=== PATIENT | female | born 1960 | race Caucasian/White ===

== ENCOUNTER → 2016-12-03 | Outpatient (CLI) | payer OTHER ==
[~2016-12-03] VITALS: Ht 162.6 cm; Wt 163.7 kg
[~2016-12-03] MED LIST: ACETAMINOPHEN 500 MG TAB PO SCH; ARIP30TA3 PO; ATV/1 PO; BUPR200T2 PO; CEFAZOLIN 3000 MG/65 ML D5W 65 ML IV SCH; CeleBREX 200 MG CAP PO SCH; DEXAMETHASONE 4 MG TAB PO SCH; ETOD500T95 PO; FERR325T18 PO; GABAPENTIN 300 MG CAP PO SCH; GLC/500 PO; INSDGI SC; LACTATED RINGER'S 1000ML IV SCH; LACTATED RINGER'S 500 ML IV SCH; LAMO100T16 PO; METOCLOPRAMIDE HCL 10 MG TAB PO SCH; OXYBUTYNIN PO; ROPIVACAINE 5MG/ML 30 ML 150 MG, BUPIVACAINE/EPINEPHR 0.5% MPF 30 ML, KETOROLAC TROMETH... INFIL SCH; SERT-234 PO; SIMV40TA2 PO; TRANEXAMIC ACID INJ 1,000 MG in SODIUM CHLORIDE 0.9% 100ML 100 ML IV SCH; TRAZ100T29 PO
[2016-12-03 09:32] VITALS: Ht 162.6 cm; Wt 163.7 kg
--- NOTE | 2016-12-03 10:04 | PAT Medication Instructions ---
Service Date Dec 03, 2016. Current Home Medication List Aripiprazole (Abilify), 30 MG PO QPM Bupropion (Wellbutrin Sr), 200 MG PO BID Etodolac (Etodolac), 1 TAB PO Q12H Ferrous Gluconate (Ferrous Gluconate), 324 MG PO BID Insulin Glargine (Lantus), 40 SC HS Lamotrigine (Lamictal), 100 MG PO BID Lorazepam (Ativan), 1 MG PO TID Metformin Hcl (Glucophage), 500 MG PO BID Sertraline (Zoloft), 100 MG PO QAM Simvastatin (Zocor), 40 MG PO QPM Trazodone Hcl (Trazodone), 200 MG PO QPM [Oxybutynin], 10 MG PO HS Medication Instructions For Your Scheduled Surgery - Hold the following medications 48 hours prior to surgery: Metformin Hcl (Glucophage), 500 MG PO BID - Hold the following medications the morning of surgery: Ferrous Gluconate (Ferrous Gluconate), 324 MG PO BID Etodolac (Etodolac), 1 TAB PO Q12H (otherwise okay to continue per surgeon) - Take the following medications the morning of surgery with a sip of water OTHERWISE NOTHING TO EAT OR DRINK AFTER MIDNIGHT: Sertraline (Zoloft), 100 MG PO QAM Bupropion (Wellbutrin Sr), 200 MG PO BID Lorazepam (Ativan), 1 MG PO TID Lamotrigine (Lamictal), 100 MG PO BID - Take the following medications as scheduled the night before surgery: Simvastatin (Zocor), 40 MG PO QPM Aripiprazole (Abilify), 30 MG PO QPM Trazodone Hcl (Trazodone), 200 MG PO QPM [Oxybutynin], 10 MG PO HS Bupropion (Wellbutrin Sr), 200 MG PO BID Insulin Glargine (Lantus), 40 SC HS Lorazepam (Ativan), 1 MG PO TID Ferrous Gluconate (Ferrous Gluconate), 324 MG PO BID Lamotrigine (Lamictal), 100 MG PO BID If you have any questions please call us at [phone] (Natalie Quan PA-C) or [phone] or [phone]
--- NOTE | 2016-12-03 10:44 | DIAGNOSTIC IMAGING REPORT ---
CHEST PREADMISSION(PA/LAT) CLINICAL HISTORY: Preoperative chest COMPARISON STUDY: No previous studies for comparison. FINDINGS: The heart is within normal limits in size. There is no lobar consolidation. There is no failure. There are no pleural effusions. There is an opacity at the level of the left cardiophrenic angle, likely resulting a fat pad. There is a linear opacity at the left mid to lower lung zone likely are presenting subsegmental atelectasis.[ IMPRESSION: No active disease in the chest. Electronically signed by: Ford Vasquez M.D. 12/03/2016 10:42 AM Dictated Date/Time: 12/03/2016 10:41 AM
[2016-12-03 11:02] LABS: BASO % 0.8 %; BASO ABS # 0.06 K/uL (0-0.2); COMPLETE YES; EOS % 2.6 %; HEMATOCRIT 41.1 % (37-47); IG% 0.3 %; LYMPH % 41.6 %; LYMPH ABS # 3.05 K/uL (1.2-3.4); MEAN CELL VOLUME 86.7 fL (80-100); MEAN CORPUSCULAR HEMOGLOBIN 28.1 pg (25-34); MEAN CORPUSCULAR HGB CONC 32.4 g/dl (32-36); MEAN PLATELET VOLUME 10.3 fL (7.4-10.4); MONO % 6.1 %; NEUT % 48.6 %; PLATELET COUNT 295 K/uL (130-400); RED BLOOD COUNT 4.74 M/uL (4.2-5.4); WHITE BLOOD COUNT 7.33 K/uL (4.8-10.8)
[2016-12-03 11:12] LABS: INR 0.9 (0.9-1.1); PARTIAL THROMBOPLASTIN RATIO 1.1; PROTHROMBIN TIME (PATIENT) 10.1 SECONDS (9.0-12.0)
[2016-12-03 11:38] LABS: BUN/CREATININE RATIO 12.8 (10-20); CALCIUM 9.6 mg/dl (8.5-10.1); CREATININE 0.85 mg/dl (0.60-1.20); POTASSIUM 4.3 mmol/L (3.5-5.1)
[2016-12-03 12:27] LABS: ESTIMATED AVERAGE GLUCOSE 120 mg/dl; HA1C FLAG Normal (Normal)
--- NOTE | 2016-12-03 17:05 | HISTORY & PHYSICAL EXAMINATION ---
DATE OF ADMISSION: 12/03/2016 DATE OF SURGERY: 12/12/2016 PROCEDURE: Right knee replacement. HISTORY OF PRESENT ILLNESS: The patient is a pleasant 56-year-old female who presents for preoperative evaluation prior to right knee replacement. She states she has been having pain in this knee for several years now, which has gradually worsened, it has now gotten to the point it is affecting her daily activities including walking, standing, going up and down steps. She has tried oral anti-inflammatories, previous cortisone injections as well as viscosupplementation with no relief. She had a previous knee arthroscopy performed in 2004, of right knee arthroscopy, partial medial and lateral meniscectomies. At this point in time, has failed conservative measures and would like to proceed with a right knee replacement. PAST MEDICAL HISTORY: 1. Hypertension. 2. High cholesterol. 3. Sleep apnea. 4. Anxiety. 5. Diabetes. 6. Obesity. ALLERGIES: No known drug allergies. CURRENT MEDICATIONS: 1. Ferrous gluconate 324 mg twice a day. 2. Lamictal 100 mg twice a day. 3. Wellbutrin 200 mg twice a day. 4. Ativan 1 mg 3 times a day. 5. Zocor 40 mg daily. 6. Metformin 500 mg twice a day. 7. Etodolac 500 mg daily. 8. Lantus 40 units daily. 9. Zoloft 100 mg daily. PAST SURGICAL HISTORY: 1. Right knee arthroscopy - July 2005. 2. Tubal ligation. 3. Cholecystectomy. FAMILY HISTORY: Noncontributory. SOCIAL HISTORY: She quit smoking in 2011. No alcohol consumption. REVIEW OF SYSTEMS: Otherwise negative. Please see HPI for pertinent positives. PHYSICAL EXAMINATION: GENERAL: A 56-year-old female, in no acute distress, alert and oriented x3. She is 5 feet 3 inches, weighs 349 pounds. VITAL SIGNS: Blood pressure is 148/86, pulse 106, O2 sats 97%. HEENT: Normocephalic, atraumatic. CARDIAC: Regular rate and rhythm. Resting pulse 106. LUNGS: Clear to auscultation without rales or wheeze bilaterally. ABDOMEN: Soft, nontender, obese. Bowel sounds present. Obesity. EXTREMITIES: Right lower extremity is neurovascularly intact. Calves are soft and nontender. DP pulse +2. No erythema or warmth. Demonstrates good quad tone. Straight leg raise without lag. Has mild effusion. Overall has varus alignment, diffuse tenderness to the knee which is greatest over the medial compartment. IMAGING: Reviewed of the right knee shows complete loss of joint space of the medial compartment with subchondral sclerosis, osteophyte formation noted, has varus alignment, DJD of patellofemoral joint. IMPRESSION: 1. Right knee degenerative joint disease. 2. Past medical history as outlined above. PLAN: Further care discussed with patient. At this point in time, has failed conservative measures and would like to proceed with a right knee replacement. Placed on aspirin 81 mg p.o. b.i.d. for a month postop. Will need to obtain medical clearance from Dr. Juan Prince and would like to be discharged home with home health physical therapy.
--- NOTE | 2017-02-28 10:55 | CODING QUERY MEDICAL NECESSITY ---
SUPPORTING DIAGNOSIS NEEDED A supporting diagnosis is required for the test/procedure performed on this patient in order for us to be reimbursed by the patient's insurance. Please provide a supporting diagnosis for the following test/procedure listed below next to the test name along with your signature. *If there is no additional diagnosis for this patient that would support the following test/procedure please document that below next to the test/procedure. Test(s)/Procedure(s) that require a supporting diagnosis: * GLYCATED HEMOGLOBIN DIAGNOSIS: * DOS: 12/03/16 Provider Signature: Date: Thank you Deanna Haddad Health Information Management Once completed, please kindly fax back to [phone] For questions please call [phone]
== END | disposition home or self-care (01) ==
LOC: C.LAB 08:00 → EDSTATUS 01-08 10:12
PROVIDERS: ATTEND Orthopaedic Surgery
DX: Z01.811 Encounter for preprocedural respiratory examination (principal); Z01.812 Encounter for preprocedural laboratory examination